=== PATIENT | female | born 1995 | race Hispanic/Latino ===

== ENCOUNTER 2018-11-02 21:22 | Observation (INO) | payer OTHER ==
[~2018-11-02] VITALS: Ht 154.9 cm; Wt 75.3 kg
[2018-11-02] MEDS ORDERED: PREN-196 PO (21:38)
[2018-11-02] MEDS ORDERED: LACTATED RINGERS 1000ML 1,000 ML IV SCH (21:45)
[2018-11-02 22:05] LABS: BILIRUBIN,URINE Negative (NEGATIVE); COLOR,URINE Yellow (YELLOW); GLUCOSE, URINE (UA) 250 mg/dL (NEGATIVE); KETONES,URINE Trace mg/dL (NEGATIVE); LEUKOCYTE ESTERASE ,URINE Trace (NEGATIVE); NITRATE,URINE Negative (NEGATIVE); OCCULT BLOOD,URINE Negative (NEGATIVE); PH,URINE 6.5 (5.0-8.0); PROTEIN,URINE Negative (NEGATIVE)
[2018-11-02 22:06] LABS: APPEARANCE,URINE SLIGHTLY CLOUDY (CLEAR)
[2018-11-02 22:19] VITALS: BP 113/68
[2018-11-02] MEDS ORDERED: LACTATED RINGERS 1000ML 1,000 ML IV ONE (22:40)
[2018-11-02 22:52] LABS: BACTERIA,URINE None Seen /HPF (None Seen); RBC,URINE None Seen /HPF (0-1); SQUAMOUS EPITHELIAL CELL,UR Moderate /HPF (0-2); WBC,URINE 0-1 /HPF (0-1)
== END 2018-11-03 01:30 | disposition home or self-care (01) ==
LOC: EDH 21:22 → LDH 21:23
PROVIDERS: ADMIT Obstetrics & Gynecology; ATTEND Obstetrics & Gynecology
DX: O42.92 Full-term premature rupture of membranes, unspecified as to length of time between rupture and onset of labor (principal); Z3A.39 39 weeks gestation of pregnancy
CPT/HCPCS: 76819; 81001; 99284; G0378 ×4; J7120; 96360; 96361

== ENCOUNTER 2018-12-26 06:24 | Day surgery (SDC) | payer OTHER ==
[2018-12-24 11:08] LABS: BASOPHILS % (AUTO) 0.4 % (0.0-5.0); EOSINOPHILS % (AUTO) 1.9 % (0.0-8.0); HEMATOCRIT 41.9 % (36-48); LYMPHOCYTES % (AUTO) 37.3 % (21.0-51.0); MEAN CORPUSCULAR HEMOGLOBIN 26.4 pg (27.0-33.0); MEAN CORPUSCULAR HGB CONC 32.5 g/dL (32.0-36.0); MEAN CORPUSCULAR VOLUME 81.1 fL (79-99); MONOCYTES % (AUTO) 4.5 % (3.0-13.0); NEUTROPHILS % (AUTO) 55.9 % (40.0-77.0); PLATELET COUNT (AUTO) 195 K/uL (130-400); RED BLOOD CELL COUNT(AUTO) 5.16 MIL/uL (4.00-5.50); RED CELL DISTRIBUTION WIDTH 16.8 % (11.0-15.5); WHITE BLOOD COUNT (AUTO) 5.8 K/uL (4.8-10.8)
[2018-12-24 11:15] VITALS: BP 110/64
[2018-12-26] VITALS (17 sets, daily range): BP systolic 101–138; BP diastolic 51–86
[~2018-12-26] VITALS: Ht 154.9 cm; Wt 68.0 kg
[2018-12-26] MEDS ORDERED: LIDOCAINE PF 2% 5ML ABBOJECT ONE (06:46)
[2018-12-26] MEDS ORDERED: PROPOFOL 10 MG/ML 20ML VIAL IV ONE ×2 (06:46→08:17)
[2018-12-26] MEDS ORDERED: ROCURONIUM 10MG/1ML SYR 10 MG/ML ML ONE (06:46)
[2018-12-26] MEDS ORDERED: MIDAZOLAM HCL 1 MG/ML 2ML VIAL ONE (06:46)
[2018-12-26] MEDS ORDERED: GLYCOPYRROLATE 1 MG/5 ML SYRINGE ONE (06:47)
[2018-12-26] MEDS ORDERED: NEOSTIGMINE 5MG/5ML SYR IV ONE (06:47)
[2018-12-26] MEDS ORDERED: PHENYLEPHRINE HCL 10 MG/ML 1ML VIAL IV ONE (06:47)
[2018-12-26] MEDS ORDERED: FENTANYL CITRATE PF 50 MCG/1 ML 2ML VIAL ONE (06:47)
[2018-12-26] MEDS ORDERED: ONDANSETRON HCL 4 MG/2 ML VIAL ONE (06:51)
[2018-12-26] MEDS ORDERED: LACTATED RINGERS 1000ML 1,000 ML IV ONE (06:52)
[2018-12-26] MEDS: CEFAZOLIN SODIUM 1 GM VIAL ONE ×2 (07:03→07:57)
[2018-12-26] MEDS ORDERED: BUPIVACAINE/PF 0.25% 30ML VIAL IJ ONE (07:11)
[2018-12-26] MEDS ORDERED: OCTYL 2-CYANOACRYLATE 1 EACH TP ONE (07:11)
[2018-12-26] MEDS ORDERED: DiphenhydrAMINE HCL 50 MG/ML VIAL ONE (07:53)
[2018-12-26] MEDS ORDERED: MORPHINE SULFATE 2 MG/ML 1ML SYG ONE ×2 (08:50→08:58)
[2018-12-26] MEDS ORDERED: KETOROLAC TROMETHAMINE 30MG/ML ONE (09:17)
--- NOTE | 2018-12-26 09:30 | NUR ---
PATIENT RETURNED FROM PACU IN NO DISTRESS, PATIENT STATES FEELING A PAIN OF 3 TO ABDOMEN AREA, ABDOMEN SITE SHOWS NO ACTIVE BLEEDING. ABDOMINAL BINDER PLACED ON PATIENT. SPOUSE WAS CONTACTED AND ASKED TO COME IN. NO VAGINAL BLEEDING NOTED.
[2018-12-26] MEDS ORDERED: ONDANSETRON HCL MDV 20ML 2 MG/ML VIAL ONE (09:45)
--- NOTE | 2018-12-26 10:00 | NUR ---
DISCHARGE INSTRUCTIONS GIVEN TO PATIENT AND HER SPOUSE. SPOUSE WAS GIVEN PRESCRIPTION AND HE VERBALIZED UNDERSTANDING. PATIENT COMPLAINT OF NAUSEA AND PT WAS MEDICATED ORDERED.
--- NOTE | 2018-12-26 10:15 | NUR ---
PATIENT TOLERATED FLUIDS WELL, NO VAGINAL BLEEDING NOTED. PATIENT STATES A PAIN OF 2 TO ABDOMINAL AREA.
--- NOTE | 2018-12-26 10:30 | NUR ---
PATIENT ASSISTED UP TO CHAIR AND TO CHANGE. IV REMOVED PATIENT AWAKE AND ALERT. NO SIGNS OF BLEEDING TO ABDOMINAL SITE. PATIENT ABLE TO STAND ON HER OWN.
--- NOTE | 2018-12-26 10:40 | NUR ---
PATIENT DISCHARGED IN NO DISTRESS VIA WHEELCHAIR WITH SPOUSE.
== END 2018-12-26 10:40 | disposition home or self-care (01) ==
LOC: DAH 06:24
PROVIDERS: ATTEND Obstetrics & Gynecology
DX: Z30.2 Encounter for sterilization (principal); Z98.890 Other specified postprocedural states; Z79.899 Other long term (current) drug therapy; Z83.3 Family history of diabetes mellitus; Z82.49 Family history of ischemic heart disease and other diseases of the circulatory system
CPT/HCPCS: 36415; 58671; 84703; 85025; 86850; 86900; 86901; A4218; A4264; A4351; A4510; A4600; A4606; C1769 ×2; G0168; J0690; J1200; J1885; J2001; J2250; J2370; J2405; J2704 ×2; J2710; J3010; J3490 ×2; J7120